=== PATIENT | female | born 1965 | race Caucasian/White ===

== ENCOUNTER 2016-09-13 17:38 | Emergency (ER) | payer OTHER ==
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
[~2016-09-13 17:38] MED LIST: LODINE PO; SINGULAIR PO; ULTRAM PO; ZANAFLEX PO; ZYRTEC PO; [UNRECOGNIZED DRUG - OTHER] IH; [UNRECOGNIZED DRUG - OTHER] INH
== END 2016-09-13 19:20 | disposition home or self-care (01) ==
LOC: CED 17:38
DX: S39.012A Strain of muscle, fascia and tendon of lower back, initial encounter (principal); Z88.8 Allergy status to other drugs, medicaments and biological substances; V49.40XA Driver injured in collision with unspecified motor vehicles in traffic accident, initial encounter; Y93.89 Activity, other specified; Y92.410 Unspecified street and highway as the place of occurrence of the external cause
CPT/HCPCS: 72100; 99284